=== PATIENT | female | born 1970 | race Caucasian/White ===

== ENCOUNTER → 2018-09-24 12:55 | Outpatient (CLI) | payer OTHER, SELFPAY ==
--- NOTE | 2018-09-24 | DI.MG.S_ITS ---
BILATERAL DIGITAL SCREENING MAMMOGRAM 3D/2D WITH CAD: 09/24/2018 CLINICAL: Routine screening. Comparison is made to exams dated: 11/03/2016 mammogram and 10/19/2014 mammogram - [facility]. There are scattered fibroglandular elements in both breasts. Current study was also evaluated with a Computer Aided Detection (CAD) system. No significant masses, calcifications, or other findings are seen in either breast. There has been no significant interval change. IMPRESSION: NEGATIVE There is no mammographic evidence of malignancy. A 1 year screening mammogram is recommended. This exam was interpreted at Station ID: [id number]. NOTE: For mammograms, a report in lay terms will be sent to the patient. Approximately 15% of breast malignancies will not be visualized mammographically. In the management of a palpable breast mass, a negative mammogram must not discourage biopsy of a clinically suspicious lesion. Electronically Signed By: Abdias king/leidy:09/24/2018 13:28:22 letter sent: Normal Exam ACR BI-RADS Category 1: Negative 3341F
== END ==
DX: Z12.31 Encounter for screening mammogram for malignant neoplasm of breast (principal)
CPT/HCPCS: 77063; 77067

== ENCOUNTER → 2020-10-12 16:39 | Outpatient (CLI) | payer OTHER, SELFPAY ==
--- NOTE | 2020-10-12 | DI.MG.S_ITS ---
BILATERAL DIGITAL SCREENING MAMMOGRAM 3D/2D WITH CAD: 10/12/2020 CLINICAL: Routine screening. Comparison is made to exams dated: 09/24/2018 mammogram, 11/03/2016 mammogram, and 10/19/2014 mammogram - [facility]. There are scattered fibroglandular elements in both breasts. Current study was also evaluated with a Computer Aided Detection (CAD) system. There is a benign calcification in both breasts. No significant masses, calcifications, or other findings are seen in either breast. There has been no significant interval change. IMPRESSION: BENIGN There is no mammographic evidence of malignancy. A 1 year screening mammogram is recommended. This exam was interpreted at Station ID: [id number]. NOTE: For mammograms, a report in lay terms will be sent to the patient. Approximately 15% of breast malignancies will not be visualized mammographically. In the management of a palpable breast mass, a negative mammogram must not discourage biopsy of a clinically suspicious lesion. Electronically Signed By: Lenard Mason acr/penrad:10/12/2020 17:07:38 letter sent: Normal Exam ACR BI-RADS Category 2: Benign Finding(s) 3342F
== END ==
PROVIDERS: PCP Student in an Organized Health Care Education/Training Program; Referring Provider Student in an Organized Health Care Education/Training Program; Visit Provider Student in an Organized Health Care Education/Training Program
DX: Z12.31 Encounter for screening mammogram for malignant neoplasm of breast (principal)
CPT/HCPCS: 77063; 77067

== ENCOUNTER → 2020-11-11 09:45 | Outpatient (CLI) | payer OTHER, SELFPAY ==
[2020-11-11 10:20] LABS: COVID19 -Nasal RAPID Negative (Negative)
== END ==
PROVIDERS: PCP Student in an Organized Health Care Education/Training Program; Visit Provider Specialist
DX: Z20.822 Contact with and (suspected) exposure to COVID-19 (principal)
CPT/HCPCS: 87635; C9803

== ENCOUNTER 2020-11-12 09:29 | Day surgery (SDC) | payer OTHER, SELFPAY ==
[2020-11-12] VITALS (7 sets, daily range): BP systolic 113–131; BP diastolic 68–85; PULSE 57–77; RESP 12–16; TEMP 36.1–36.8; O2SAT 97–100; BMI 28.3
--- NOTE | 2020-11-12 | PATH_ITS ---
[facility] Accession Number: [id number] . 01 Material submitted: . PART A: colon - ASCENDING COLON POLYP PART B: colon - COLON POLYP AT 30CM PART C: colon - TRANSVERSE COLON POLYP AT 30CM . 02 Diagnosis: A. Ascending Colon, Polyp, Biopsy: Tubulovillous adenoma. No evidence of malignancy or high-grade dysplasia. . B. Colon, Polyp at 30 cm, Biopsy: Tubular adenoma. . C. Transverse Colon, Polyp at 30 cm, Biopsy: Tubular adenoma. MRV 11/17/2020 1139 Local . 02 Electronically signed: . Beatriz Stapleton MD, Pathologist NPI- [id number] . 01 Gross description: . Part A: ASCENDING COLON POLYP: Received in formalin are multiple fragment(s) of valencia, soft tissue measuring 0.1 x 0.1 x 0.1 cm to 2.0 x 0.4 x 0.4 cm submitted entirely in 4 cassette(s) Part B: COLON POLYP AT 30CM: Received in formalin is 1 fragment(s) of valencia, soft tissue measuring 0.5 x 0.5 x 0.4 cm submitted entirely in 1 cassette(s) Part C: TRANSVERSE COLON POLYP AT 30CM: Received in formalin is 1 fragment(s) of valencia, soft tissue measuring 0.4 x 0.3 x 0.3 cm submitted entirely in 1 cassette(s) /VALERIE 11/16/2020 0124 Local . 02 Pathologist provided ICD-10: D12.2, D12.6, D12.3 . 02 CPT . 635267, 930276, 052349 Performed at: [address] [facility], [place], [place] [id number] MD Richard Chow MD Phone: [phone] Performed at: 02 [facility] [id number] [place] [id number] MD Beatriz Stapleton MD Phone: [phone]
[2020-11-12] MEDS: LACTATED RINGERS 1,000 ML 200 ML IV (09:59)
--- NOTE | 2020-11-12 11:19 | PM.HP.1 ---
History of Present Illness History of Present Illness Date Patient Seen: 11/12/20 Time Patient Seen: 11:19 Chief complaint: [facility] Narrative: Patient is here for screening colonoscopy. This is her 1st exam. Her mother had colon cancer in her 60s. The patient is 50. Patient History Medical History Abnormal Pap smear of cervix (~2002) Ankle fracture (~1986) Ankle pain (~1986) Chicken pox (~1987) Heart murmur History of irregular menstrual cycles (~1983) Plantar warts (~1995) Polycystic ovaries (~1993) Vision disorder Surgical History Anesthesia History of carpal tunnel repair (~2003) History of third molar tooth extraction (~2001) Pilonidal cyst (~1988) Status post delivery (~1994) Family & Social History Family History Father Age: 82 Hypertension Grandfather No problems noted. Grandfather No problems noted. Grandmother No problems noted. Social History: household members family Tobacco & Substance use: Smoking Status Never smoker alcohol intake frequency holiday/special occasion Substance Use Type does not use Meds Home Medications and Allergies Home Medications Medication Instructions Recorded Confirmed Type norgestimate 0.25 mg-ethinyl 1 tab PO QDAY #84 tab 04/08/20 11/12/20 Rx estradiol 35 mcg tablet spironolactone 100 mg tablet 100 mg PO BID #60 tab 04/08/20 11/12/20 Rx Allergies Allergy/AdvReac Type Severity Reaction Status Date / Time codeine [CODEINE] AdvReac Unknown Verified 04/08/20 13:50 Review of Systems Review of Systems ROS: Yes All systems reviewed with the patient and are negative except as otherwise documented Exam Vital Signs (past 8 hours): - 11/12/20 09:49 Temperature 97 F L Pulse Rate 77 Respiratory Rate 13 Blood Pressure 124/83 Pulse Oximetry 97 Oxygen Delivery Method Room Air Oxygen Flow Rate 0 Narrative Exam Narrative: Pleasant cooperative patient no apparent distress. Lungs are clear to auscultation. No rales or rhonchi. Heart regular rate and rhythm no murmur gallop. (despite history of murmur) Abdomen is soft nontender without mass. No obvious hernias. Patient is alert and oriented x3. Assessment & Plan Assessment & Plan narrative: The patient for a screening colonoscopy. I have discussed the procedure with them. Risks of bleeding, perforation which would necessitate major operation, failure to find remove all lesions, the potential tattoo were all discussed. All questions were answered. They wished to proceed.
--- NOTE | 2020-11-12 11:20 | PM.PREOP ---
Pre-operative Note COVID-19 COVID-19 status: Negative Result date/Date tested (Pos, Neg/Pending): 11/11/20 Interval Note History & Physical reviewed/Exam performed by Physician: Yes Changes to H&P: No ASA Class (for procedural sedation): I
[2020-11-12] MEDS: SODIUM CHLORIDE 0.9% 1,000 ML 100 ML IV (12:29)
[2020-11-12] MEDS: fentaNYL 250 MCG/5 ML INJ IV (12:30)
[2020-11-12] MEDS: MIDAZOLAM 5 MG/5 ML VIAL IV (12:30)
--- NOTE | 2020-11-12 12:38 | P.OP.ENDO_ITS ---
Operative Date/Time/Diagnoses Date of procedure: 11/12/20 Time of procedure: 12:38 Pre-op diagnosis: Family history of colon cancer. Patient has turned 50. Screening exam. Post-op diagnosis: same (Multiple polyps include doing 1 large flat ascending colon polyp most of this was removed in pieces by snare) Procedure & Clinicians Study performed: Colonoscopy with hot snare polypectomy multiple Same procedure as scheduled: Yes Indications: Screening Surgeon: Hu Reed Procedure Notes SCOAP/Timeout: Performed Procedure in detail: The patient was placed in the left lateral decubitus position and underwent IV sedation directed by the surgeon consisting of fentanyl and Versed. Digital exam was unremarkable. The scope was inserted and advanced through the rectum into the sigmoid, descending, transverse, and as cending colon. In the sigmoid I noted an occasional diverticulum. In the transverse colon there was a polyp which I snared.. The cecum was reached identified by the ileocecal valve and the appendiceal opening. The ileocecal valve was successfully cannulated. The terminal ileum was normal in appearance. The scope was gradually brought out. There was a rather large flat polyp in the ascending colon within the view of the cecum. It was snared repeatedly and removed in pieces. I could not be certain however that all of it was removed though the vast majority of it was. An additional Polyp was found at 30 cm from the anal verge and this was snared and removed. There was another nearby polyp which was small and snared but was lost and unable to be retrieved.. The scope ultimately was retroflexed in the rectum. The appearance was normal. The scope was removed and the patient tolerated the procedure well. Prep was very good Scope withdrawal time: 10 minutes(43 total) Sedation minutes: 63 Findings: diverticulosis and polyp Specimen(s): other (Polyps) Complications: none Post-procedure Recommendations: Other recommendation (Colonoscopy in 3 months.) Plan for aftercare: Repeat colonoscopy in 3 months to confirm completely removal of the large polyp in the ascending colon if it is benign. Follow up: as needed Disposition: PACU
== END 2020-11-12 13:35 | disposition home or self-care (01) ==
PROVIDERS: PCP Student in an Organized Health Care Education/Training Program; Referring Provider Specialist; Visit Provider Specialist
PROC: 0DJD8ZZ Inspection of Lower Intestinal Tract, Via Natural or Artificial Opening Endoscopic (ICD-10-PCS; CPT 45378; principal; 2020-11-12 10:45)
DX: Z12.11 Encounter for screening for malignant neoplasm of colon (principal); Z80.0 Family history of malignant neoplasm of digestive organs; K57.30 Diverticulosis of large intestine without perforation or abscess without bleeding; D12.2 Benign neoplasm of ascending colon; D12.3 Benign neoplasm of transverse colon; D12.6 Benign neoplasm of colon, unspecified
CPT/HCPCS: 45385; 99152; 99153; J2250; J3010

== ENCOUNTER → 2021-02-17 15:15 | Outpatient (CLI) | payer OTHER, SELFPAY ==
[2021-02-17 16:38] LABS: COVID19 -Nasal RAPID Negative (Negative)
== END ==
PROVIDERS: PCP Student in an Organized Health Care Education/Training Program; Visit Provider Specialist
DX: Z20.822 Contact with and (suspected) exposure to COVID-19 (principal)
CPT/HCPCS: 87635; C9803

== ENCOUNTER 2021-02-18 08:05 | Day surgery (SDC) | payer OTHER, SELFPAY ==
[2021-02-18] VITALS (7 sets, daily range): BP systolic 119–132; BP diastolic 69–89; PULSE 62–80; RESP 11–14; TEMP 36.4–37; O2SAT 92–100; BMI 28.8
--- NOTE | 2021-02-18 | PATH_ITS ---
[facility] Accession Number: [id number] . 01 Material submitted: . PART A: colon - TRANSVERSE COLON POLYP PART B: colon - TRANSVERSE COLON POLYP 100 CM PART C: colon - SIGMOID COLON POLYP . 01 Clinical history: . SDC . 02 Diagnosis: A. Transverse Colon Polyp: Portions of tubular adenoma x2. . B. Transverse Colon Polyp 100 cm: Tubular adenoma. . C. Sigmoid Colon Polyp: Tubular adenoma. MRV 02/23/2021 0931 Local . 02 Electronically signed: . Sofia Ruiz MD, Pathologist NPI- [id number] . 01 Gross description: . Part A: TRANSVERSE COLON POLYP: Received in formalin are 2 fragment(s) of valencia, soft tissue measuring 0.3 x 0.3 x 0.2 cm to 0.3 x 0.3 x 0.2 cm submitted entirely in 1 cassette(s) Part B: TRANSVERSE COLON POLYP 100 CM: Received in formalin is 1 fragment(s) of valencia, soft tissue measuring 0.4 x 0.3 x 0.3 cm submitted entirely in 1 cassette(s) Part C: SIGMOID COLON POLYP: Received in formalin is 1 fragment(s) of valencia, soft tissue measuring 0.3 x 0.3 x 0.2 cm submitted entirely in 1 cassette(s) /DALIA 02/19/2021 0658 Local . 02 Pathologist provided ICD-10: K63.5, Z86.010 . 02 CPT . 629183, 985318, 847693 Performed at: 01 [facility] [address], [place], [place] [id number] MD Richard Chow MD Phone: [phone] Performed at: 02 [facility] [address] [place] [id number] MD Beatriz Stapleton MD Phone: [phone]
[2021-02-18] MEDS: LACTATED RINGERS 1,000 ML 200 ML IV (08:37)
--- NOTE | 2021-02-18 09:30 | PM.HP.1 ---
History of Present Illness History of Present Illness Date Patient Seen: 02/18/21 Time Patient Seen: 09:30 Chief complaint: SDC Narrative: 50-year-old female family history of colon cancer had a colonoscopy several months ago that demonstrated multiple benign polyps is here today for repeat colonoscopy to ensure that all of the polyps were successfully removed. No blood per rectum nausea vomiting. Patient History Medical History (Updated 02/18/21 @ 09:33 by Samuel Bautista MD) Abnormal Pap smear of cervix (~2002) Ankle fracture (~1986) Ankle pain (~1986) Chicken pox (~1987) Heart murmur History of irregular menstrual cycles (~1983) Plantar warts (~1995) Polycystic ovaries (~1993) Vision disorder Surgical History Anesthesia History of carpal tunnel repair (~2003) History of third molar tooth extraction (~2001) Pilonidal cyst (~1988) Status post delivery (~1994) Family & Social History Family History Father Age: 82 Hypertension Grandfather No problems noted. Grandfather No problems noted. Grandmother No problems noted. Social History: household members family Tobacco & Substance use: Smoking Status Never smoker alcohol intake current alcohol intake frequency holiday/special occasion Substance Use Type does not use Meds Home Medications and Allergies Home Medications Medication Instructions Recorded Confirmed Type norgestimate 0.25 mg-ethinyl 1 tab PO QDAY #84 tab 04/08/20 02/18/21 Rx estradiol 35 mcg tablet (Previfem) spironolactone 100 mg tablet 100 mg PO BID #60 tab 04/08/20 02/18/21 Rx (Aldactone) Allergies Allergy/AdvReac Type Severity Reaction Status Date / Time codeine [CODEINE] AdvReac Unknown Verified 02/18/21 08:22 Review of Systems Review of Systems ROS: Yes All systems reviewed with the patient and are negative except as otherwise documented Exam Vital Signs (past 8 hours): - 02/18/21 08:28 Temperature 97.6 F Pulse Rate 62 Respiratory Rate 12 Blood Pressure 128/89 Pulse Oximetry 100 Oxygen Delivery Method Room Air Narrative Exam Narrative: GENERAL-well developed adult female, no acute distress HEENT-no scleral icterus, hearing intact NECK-no JVD, trachea midline CVS- regular rate, no peripheral edema RESP-unlabored respiratory effort, no audible wheezing GI-soft, nontender nondistended MSK-no cyanosis or clubbing, extremities without deformity SKIN-warm, dry NEURO-alert and oriented, no focal deficits PYSCH-Appropriate mood and affect Assessment & Plan Assessment and plan (1) Personal history of colonic polyps: Status: Acute Assessment & Plan narrative: 50-year-old female family history of colon cancer cancer status post colonoscopy 3 months ago with piecemeal removal of several polyps. Here today for repeat colonoscopy to ensure that all the polyps were removed in their entirety. Technical details were discussed. Risks, benefits, alternatives explained. Risks including but not limited to myocardial infarction, aspiration, bleeding, pain, missed lesion, incomplete examination, need for further radiographic studies, colonic perforation, and need for major abdominal surgery were discussed. All questions were answered to their satisfaction, and they are in agreement with this plan.
[2021-02-18] MEDS: fentaNYL 250 MCG/5 ML INJ IV (09:49)
[2021-02-18] MEDS: MIDAZOLAM 5 MG/5 ML VIAL IV (09:50)
--- NOTE | 2021-02-18 10:04 | PM.OP.ENDO ---
Operative Date/Time/Diagnoses Date of procedure: 02/18/21 Time of procedure: 10:04 Pre-op diagnosis: Personal history of colonic polyps, family history of colon cancer Post-op diagnosis: same Procedure & Clinicians Study performed: Colonoscopy Same procedure as scheduled: Yes Indications: Recent colonoscopy with several polyps removed piecemeal here for follow-up colonoscopy to ensure all polyps were removed in their entirety Surgeon: Samuel Bautista Procedure Notes Procedure in detail: Medications: Conscious sedation using 7mg IV midazolam and 200 mcg IV of fentanyl The history and physical was performed/updated and the patient is ASA class is 1. The procedure was discussed in detail with the patient. Potential risks complications including infection, bleeding, missed diagnosis, perforation, need for surgery, and were explained. Their questions were answered and informed consent was obtained. Patient was brought to the procedure room and placed standard monitoring equipment. The patient's vital signs were monitored continuously throughout the entire procedure. Prior to starting time-out was performed. The patient was placed in the left lateral recumbent position. Procedural sedation was administered. Examination began with a thorough inspection of the perianal area there was no evidence of fissures, fistulae, external hemorrhoids or cutaneous malignancy. The colonoscopy scope was then placed into the anal canal and was advanced to the cecum, which was identified by the ileocecal valve, the appendiceal orifice and the confluence of the taenia. The scope was then slowly withdrawn examining colon thoroughly in all directions, irrigating it of any residual stool. 1. Two 5 mm polyps in the transverse colon removed with biopsy forceps. 2. 5 mm polyp within the sigmoid colon removed with biopsy forceps 3. Sigmoid diverticulosis The patient tolerated the procedure well. They will be discharged once criteria are met. The prep was of good/excellent quality. The withdrawl time was 7 minutes. The sedation time was 26 minutes. Specimen(s): other (Transverse polyps, sigmoid polyp) Complications: none Impression: Colonic polyps Post-procedure Recommendations: Colonscopy in 5 years Disposition: same day surgery
== END 2021-02-18 11:02 | disposition home or self-care (01) ==
PROVIDERS: PCP Student in an Organized Health Care Education/Training Program; Referring Provider Surgery; Visit Provider Surgery
PROC: 0DJD8ZZ Inspection of Lower Intestinal Tract, Via Natural or Artificial Opening Endoscopic (ICD-10-PCS; CPT 45378; principal; 2021-02-18 09:15)
DX: Z12.11 Encounter for screening for malignant neoplasm of colon (principal); Z86.010 Personal history of colon polyps; Z80.0 Family history of malignant neoplasm of digestive organs; K57.30 Diverticulosis of large intestine without perforation or abscess without bleeding; D12.3 Benign neoplasm of transverse colon; D12.5 Benign neoplasm of sigmoid colon
CPT/HCPCS: 45380; 99152; J2250; J3010

== ENCOUNTER → 2021-10-19 12:48 | Outpatient (CLI) | payer OTHER, SELFPAY ==
--- NOTE | 2021-10-19 | DI.MG.S_ITS ---
BILATERAL DIGITAL SCREENING MAMMOGRAM 3D/2D WITH CAD: 10/19/2021 CLINICAL: Routine screening. Comparison is made to exams dated: 10/12/2020 mammogram, 09/24/2018 mammogram, and 11/03/2016 mammogram - [facility]. There are scattered fibroglandular elements in both breasts. Current study was also evaluated with a Computer Aided Detection (CAD) system. There is a benign calcification in both breasts. No significant masses, calcifications, or other findings are seen in either breast. There has been no significant interval change. IMPRESSION: BENIGN There is no mammographic evidence of malignancy. A 1 year screening mammogram is recommended. This exam was interpreted at Station ID: [id number]. NOTE: For mammograms, a report in lay terms will be sent to the patient. Approximately 15% of breast malignancies will not be visualized mammographically. In the management of a palpable breast mass, a negative mammogram must not discourage biopsy of a clinically suspicious lesion. Electronically Signed By: Vero freire/leidy:10/19/2021 17:09:58 letter sent: Normal Exam ACR BI-RADS Category 2: Benign Finding(s) 3342F
== END ==
PROVIDERS: PCP Student in an Organized Health Care Education/Training Program; Referring Provider Student in an Organized Health Care Education/Training Program; Visit Provider Student in an Organized Health Care Education/Training Program
DX: Z12.31 Encounter for screening mammogram for malignant neoplasm of breast (principal)
CPT/HCPCS: 77063; 77067

== ENCOUNTER → 2022-03-17 13:35 | Outpatient (CLI) | payer OTHER, SELFPAY ==
--- NOTE | 2022-03-17 13:42 | DI.RAD.S_ITS ---
PROCEDURE: XR FOOT RT MIN 3V INDICATIONS: Right foot pain TECHNIQUE: 3 views of the foot were acquired. COMPARISON: None. FINDINGS: Bones: Mildly displaced intra-articular fracture involving the base of the 5th metatarsus. Mild hallux valgus metatarsus prima varus alignment and medial bunion. Prominent plantar calcaneal enthesophyte. Soft tissues: No tibiotalar joint effusion. Achilles tendon appears normal. IMPRESSION: 1. 5th metatarsal base fracture. 2. Mild hallux valgus alignment and medial bunion. 3. Calcaneal enthesopathy. Dictated by: Dion Horan [facility] Interpreted: Nohemi Galaviz MD on 03/17/2022 at 15:02 Transcribed by: ELLIOTT on 03/17/2022 at 15:03 Approved by: Nohemi Galaviz M.D. on 03/17/2022 at 15:14
--- NOTE | 2022-03-17 13:42 | DI.RAD.S_ITS ---
PROCEDURE: XR ANKLE RT MIN 3V INDICATIONS: Right foot pain TECHNIQUE: 3 views of the ankle were acquired. COMPARISON: [facility], , XR FOOT RT MIN 3V, 03/17/2022, 13:50. FINDINGS: Bones: Mildly displaced intra-articular fracture involving the 5th metatarsal base.. Ankle mortise is normally aligned. No suspicious bony lesions. Prominent plantar calcaneal enthesophyte. Soft tissues: No tibiotalar joint effusion. Achilles tendon appears normal. IMPRESSION: Intra-articular fracture involving the 5th metatarsal base. Dictated by: Dion Horan [facility] Interpreted: Nohemi Galaviz MD on 03/17/2022 at 15:01 Transcribed by: ELLIOTT on 03/17/2022 at 15:02 Approved by: Nohemi Galaviz M.D. on 03/17/2022 at 15:14
== END ==
PROVIDERS: PCP Student in an Organized Health Care Education/Training Program; Referring Provider Nurse Practitioner Family; Visit Provider Nurse Practitioner Family
DX: S92.351A Displaced fracture of fifth metatarsal bone, right foot, initial encounter for closed fracture (principal); M20.11 Hallux valgus (acquired), right foot; M21.611 Bunion of right foot; M77.31 Calcaneal spur, right foot; X58.XXXA Exposure to other specified factors, initial encounter
CPT/HCPCS: 73610; 73630

== ENCOUNTER → 2022-04-28 12:30 | Outpatient (CLI) | payer OTHER, SELFPAY ==
--- NOTE | 2022-04-28 | DI.RAD.S_ITS ---
PROCEDURE: XR FOOT RT MIN 3V INDICATIONS: Nondisplaced fracture of fifth metatarsal bone, right foot, TECHNIQUE: 3 views of the foot were acquired. COMPARISON: [facility], , XR FOOT RT MIN 3V, 03/17/2022, 13:50. FINDINGS: Bones: Stable alignment of nondisplaced base of 5th metatarsal fracture with slight interval decrease in fracture line conspicuity. Minimal periosteal reaction. Remainder of the visualized osseous structures appear intact. Prominent plantar calcaneal enthesophyte. Soft tissues: No tibiotalar joint effusion. Achilles tendon appears normal. IMPRESSION: Healing nondisplaced base of right 5th metatarsal fracture. Prominent calcaneal enthesophyte. Dictated by: Abdias Hernandez M.D. on 04/28/2022 at 14:16 Approved by: Abdias Hernandez M.D. on 04/28/2022 at 14:18
== END ==
PROVIDERS: PCP Student in an Organized Health Care Education/Training Program; Referring Provider Student in an Organized Health Care Education/Training Program; Visit Provider Student in an Organized Health Care Education/Training Program
DX: S92.354D Nondisplaced fracture of fifth metatarsal bone, right foot, subsequent encounter for fracture with routine healing (principal); M77.31 Calcaneal spur, right foot
CPT/HCPCS: 73630

== ENCOUNTER → 2023-12-05 16:10 | Outpatient (CLI) | payer OTHER, SELFPAY ==
--- NOTE | 2023-12-05 16:12 | DI.US.S_ITS ---
PROCEDURE: US CAROTID DOPPLER BI INDICATIONS: MIXED HYPERLIPIDEMIA/ROUTINE SCREENING TECHNIQUE: Color and pulse Doppler interrogation was performed of both carotid systems, with image documentation and velocity measurements. COMPARISON: None. FINDINGS: Stenosis calculations are based on SRU (Society of Radiologists in Ultrasound) criteria. The flow velocities and the arterial waveforms are normal within both carotid arterial systems. Minimal atherosclerotic plaque is seen. The estimated degree of internal carotid artery stenosis is less than 50%. Antegrade flow is confirmed within both vertebral arteries. IMPRESSION: No hemodynamically significant stenosis is seen. Dictated by: Dane Antony M.D. on 12/05/2023 at 16:44 Approved by: Dane Antony M.D. on 12/05/2023 at 16:45
--- NOTE | 2023-12-05 16:12 | DI.MG.S_ITS ---
BILATERAL DIGITAL SCREENING MAMMOGRAM 3D/2D WITH CAD: 12/05/2023 CLINICAL: Routine screening. Comparison is made to exams dated: 10/19/2021 mammogram, 10/12/2020 mammogram, and 09/24/2018 mammogram - [facility]. There are scattered areas of fibroglandular density in both breasts (category b / 25%-50% glandular tissue). Current study was also evaluated with a Computer Aided Detection (CAD) system. No significant masses, calcifications, or other findings are seen in either breast. There has been no significant interval change. IMPRESSION: NEGATIVE There is no mammographic evidence of malignancy. A 1 year screening mammogram is recommended. Based on the Tyrer Cuzick model (a risk assessment model) the patient's lifetime risk is 6.8% and her 10 year risk is 1.8%. According to the ACR, ACS, and NCCN guidelines, an annual breast MRI exam along with mammogram is recommended if the patient's lifetime risk is 20% or greater. This exam was interpreted at Station ID: [id number]. NOTE: For mammograms, a report in lay terms will be sent to the patient. Approximately 15% of breast malignancies will not be visualized mammographically. In the management of a palpable breast mass, a negative mammogram must not discourage biopsy of a clinically suspicious lesion. Electronically Signed By: Cira Riojas M.D., Ph.D. garrett/leidy:12/06/2023 23:32:16 letter sent: Normal Exam ACR BI-RADS Category 1: Negative 3341F
== END ==
PROVIDERS: PCP Student in an Organized Health Care Education/Training Program; Referring Provider Student in an Organized Health Care Education/Training Program; Visit Provider Student in an Organized Health Care Education/Training Program
DX: E78.2 Mixed hyperlipidemia (principal); Z12.31 Encounter for screening mammogram for malignant neoplasm of breast; R92.323 Mammographic fibroglandular density, bilateral breasts
CPT/HCPCS: 77063; 77067; 93880

== ENCOUNTER → 2023-12-14 16:16 | Outpatient (CLI) | payer OTHER, SELFPAY ==
[2023-12-14 18:49] LABS: TSH w/ Reflex to FT4 1.02 uIU/mL (0.47-4.68)
== END ==
PROVIDERS: PCP Student in an Organized Health Care Education/Training Program; Referring Provider Student in an Organized Health Care Education/Training Program; Visit Provider Student in an Organized Health Care Education/Training Program
DX: N93.9 Abnormal uterine and vaginal bleeding, unspecified (principal)
CPT/HCPCS: 36415; 84443

== ENCOUNTER → 2023-12-20 15:39 | Outpatient (CLI) | payer OTHER, SELFPAY ==
--- NOTE | 2023-12-20 15:40 | DI.US.S_ITS ---
PROCEDURE: US PELVIC COMPLETE INDICATIONS: DUB TECHNIQUE: Real-time scanning was performed of the pelvic organs, with image documentation. Additional endovaginal scanning was necessary due to incomplete visualization of the adnexal and endometrial structures by transabdominal scanning. COMPARISON: None. FINDINGS: Uterus: Uterus is anteverted and normal in size at 9.5 x 4.7 x 6.2 cm. The myometrium is homogeneous. The endometrium measures 7 mm combined thickness. Ovaries: The right ovary measures 3.3 x 2.8 x 1.8 cm, with a calculated ovarian volume of 9 cc. The left ovary measures 1.5 x 2.2 x 1.5 cm, with a calculated ovarian volume of 2.4 cc. The ovaries have a normal sonographic appearance. Dominant right ovarian follicle measuring 2.6 centimeter. Less than 12 follicles can be seen in each ovary. No adnexal masses are seen. Other: No pathologic free abdominal or pelvic fluid. IMPRESSION: Normal pelvic ultrasound. We strive to produce accurate, complete, and clear reports of imaging services. To assist us in improving patient care, this report was composed using standard report templates and voice recognition software. Therefore, it may contain abnormal punctuation, insertions and/or omissions. Occasional wrong-word or sound-alike substitutions may occur. Though we review the report and make efforts to correct it, we do recommend that the report be read carefully in proper context to recognize any text inaccuracies. Dictated by: Chi Christianson M.D. on 12/20/2023 at 17:09 Approved by: Chi Christianson M.D. on 12/20/2023 at 17:10
== END ==
PROVIDERS: PCP Student in an Organized Health Care Education/Training Program; Referring Provider Student in an Organized Health Care Education/Training Program; Visit Provider Student in an Organized Health Care Education/Training Program
DX: N93.9 Abnormal uterine and vaginal bleeding, unspecified (principal)
CPT/HCPCS: 76830; 76856

== ENCOUNTER → 2024-12-25 13:47 | Outpatient (CLI) | payer OTHER, SELFPAY ==
--- NOTE | 2024-12-25 15:14 | DI.RAD.S_ITS ---
PROCEDURE: XR DEXA AXIAL SKELETON INDICATIONS: screening COMPARISON: None. FINDINGS: Lumbar Spine: Bone mineral density 1.054 g/cm2, T score 0.2, normal. Left Femoral Neck: Bone mineral density 0.855 g/cm2, T score 0.1., normal Left Hip: Bone mineral density 1.027 g/cm2, T score 0.7, normal. Fracture Risk Calculation (when applicable): 10-year fracture risk of a major osteoporotic fracture not calculated because all T-scores are at or above -1.0. (T score greater or equal to -1.0 to: NORMAL) (T score from -1.1 to -2.4: OSTEOPENIA) (T score less than or equal to -2.5: OSTEOPOROSIS) IMPRESSION: Normal bone mineral density. No elevated fracture risk. Follow-up guidelines as follows: Osteoporosis: Consider a repeat DEXA and Vertebral Fracture Assessment (VFA) exam in 2 years or sooner if medically necessary, to reassess this patient's status. Osteopenia: Consider a repeat DEXA in 2-3 years to reassess this patient's status, or if there is a new clinical indication. Normal: Consider a repeat DEXA in 5 years or sooner, or if there is a new clinical indication. All treatment decisions require clinical judgment and consideration of individual patient factors, including patient preferences, comorbidities, previous drug use, risk factors not captured in the FRAX model (e.g., frailty, falls, vitamin D deficiency, increased bone turnover, interval significant decline in bone density ) and possible under- or over-estimation of fracture risk by FRAX. In addition, the NOF Guide recommends that FDA-approved medical therapies be considered in postmenopausal women and men age >= 50 years with a: * Hip or vertebral (clinical or morphometric) fracture * T-score of <=-2.5 at the spine or hip * Ten-year fracture probability by FRAX of >= 3% for hip fracture or >=20% for major osteoporotic fracture. Dictated by: Janie Dawn M.D. on 12/26/2024 at 10:10 Approved by: Janie Dawn M.D. on 12/26/2024 at 10:11
== END ==
PROVIDERS: PCP Family Medicine; Referring Provider Emergency Medicine; Visit Provider Emergency Medicine
DX: Z13.820 Encounter for screening for osteoporosis (principal); M81.0 Age-related osteoporosis without current pathological fracture
CPT/HCPCS: 77080

== ENCOUNTER → 2025-02-04 07:56 | Outpatient (CLI) | payer OTHER, SELFPAY ==
--- NOTE | 2025-02-04 07:58 | DI.MG.S_ITS ---
MM screening mammo BI: 02/04/2025. BI-RADS: 0 CLINICAL: 54-year old female for bilateral screening mammogram. Tyrer-Cuzick lifetime risk of 5.8%. PRIOR EXAMS: 12/05/2023, 10/19/2021, 10/12/2020, 09/24/2018, 11/03/2016. MAMMOGRAPHY TECHNIQUE: 2D and 3D (tomosynthesis) digital mammographic views obtained, with additional images as needed for full coverage. Current study was also evaluated with a Computer Aided Detection (CAD) system. DENSITY B. There are scattered areas of fibroglandular density. MAMMOGRAPHY FINDINGS Right: MLO only, Lower, Middle depth: Asymmetry needing additional imaging evaluation. Left: No suspicious mass, asymmetry, microcalcification, or other abnormality seen. No significant change from comparison. IMPRESSION: Right (Asymmetry): MLO only, Lower, Middle depth * Incomplete - asymmetry needing additional imaging evaluation. Left * No evidence of malignancy. RECOMMENDATIONS Right: MLO only, Lower, Middle depth * Further evaluation with diagnostic mammography and diagnostic ultrasound. Ultrasound to be performed only if needed. OVERALL ASSESSMENT CATEGORY BI-RADS-0: Incomplete - Need Additional Imaging Evaluation. ELECTRONICALLY SIGNED: Janie Dawn M.D. on 02/07/2025 at 12:47:08 PM PT Interpreting Station ID: [id number]
== END ==
PROVIDERS: PCP Family Medicine; Referring Provider Family Medicine; Visit Provider Family Medicine
DX: Z12.31 Encounter for screening mammogram for malignant neoplasm of breast (principal)
CPT/HCPCS: 77063; 77067

== ENCOUNTER → 2025-02-24 11:54 | Outpatient (CLI) | payer OTHER, SELFPAY ==
--- NOTE | 2025-02-24 11:56 | DI.MG.S_ITS ---
MM diagnostic mammo unilat RT: 02/24/2025. BI-RADS: 2 CLINICAL: 54-year old female for right diagnostic mammogram that is a recall from screening on 02/04/2025. Tyrer-Cuzick lifetime risk of 7.6%. No personal or first-degree family history of breast cancer. PRIOR EXAMS 02/04/2025, 12/05/2023, 10/19/2021, 10/12/2020. MAMMOGRAPHY TECHNIQUE: 2D and 3D (tomosynthesis) digital mammographic views obtained, with additional images as needed for full coverage. Current study was also evaluated with a Computer Aided Detection (CAD) system. DENSITY Right: B. There are scattered areas of fibroglandular density. MAMMOGRAPHY FINDINGS Right: MLO only, Lower, Middle depth: The previously seen asymmetry is less conspicuous with spot compression views and with the nipple in profile, compatible with benign fibroglandular tissue. There are no suspicious masses, calcifications, or other findings in the breast. IMPRESSION: Right * No evidence of malignancy with benign findings. RECOMMENDATIONS Bilateral * Annual screening mammography. COMMENTS: Findings and recommendations were conveyed to the patient during today's evaluation. OVERALL ASSESSMENT CATEGORY BI-RADS-2: Benign. The [employer] recommends annual screening mammography beginning at age 40 for women with average risk of breast cancer. ELECTRONICALLY SIGNED: Mackenzie Mayo M.D. on 02/24/2025 at 01:10:46 PM PT Interpreting Station ID: [id number]
== END ==
PROVIDERS: PCP Family Medicine; Referring Provider Family Medicine; Visit Provider Family Medicine
DX: R92.8 Other abnormal and inconclusive findings on diagnostic imaging of breast (principal); N64.89 Other specified disorders of breast
CPT/HCPCS: 77065; G0279